=== PATIENT | female | born 1950 | race Caucasian/White ===

== ENCOUNTER 2017-09-03 15:47 | Emergency (ER) | payer MEDICARE ==
[2017-09-03 16:04] VITALS: BP 140/77
--- NOTE | 2017-09-03 17:03 | UC ---
Abdominal Pain Female HPI - HPI Summary HPI Summary: Patient presents with acute onset of "burning" abdominal pain and vomiting that started last night. Pain woke her from sleep around midnight. Several hours later she woke again and vomited about 4 times. Later that morning she vomited several more times. No blood. No diarrhea. No fever. Called her PCP and was advised to come here for further evaluation. Patient reports she feels overall a bit achy but otherwise has improved over the day. She is drinking water and guy kelvin and this has been staying down. She denies any recent travel or new foods but did have take-out [employer] last night for dinner. - History of Current Complaint Chief Complaint: UCGI Stated Complaint: NAUSEA, UPSET STOMACH Time Seen by Provider: 09/03/17 16:38 Hx Obtained From: Patient Onset/Duration: Sudden Onset, Lasting Hours, Still Present - But better Pain Intensity: 3 Pain Scale Used: 0-10 Numeric Location: Diffuse Radiates: No Character: Burning Aggravating Factor(s): Nothing Alleviating Factor(s): Nothing Associated Signs and Symptoms: Positive: Decreased Appetite, Nausea, Vomiting. Negative: Fever, Back Pain, Constipation, Blood in Stool, Urinary Symptoms, Diarrhea Allergies/Adverse Reactions: Allergies Allergy/AdvReac Type Severity Reaction Status Date / Time codeine Allergy Vomiting Verified 09/03/17 16:05 bandaids Allergy Rash Uncoded 09/03/17 16:05 PMH/Surg Hx/FS Hx/Imm Hx - Additional Past Medical History Additional PMH: HIATAL HERNIA, ENVIRONMENTAL ALLERGIES Cardiovascular History: Hypertension - Surgical History Surgical History: Yes Surgery Procedure, Year, and Place: 2 c-sections - Family History Known Family History: Positive: Unknown - PT ADOPTED - Social History Alcohol Use: Occasionally Substance Use Type: None Smoking Status (MU): Never Smoked Tobacco Review of Systems Constitutional: Negative Respiratory: Negative Cardiovascular: Negative Gastrointestinal: Abdominal Pain, Vomiting, Nausea Musculoskeletal: Myalgia Neurological: Headache All Other Systems Reviewed And Are Negative: Yes Physical Exam Triage Information Reviewed: Yes Appearance: Well-Appearing, No Pain Distress, Well-Nourished Vital Signs: Initial Vital Signs Temp 99.3 F 09/03/17 15:58 Pulse 93 09/03/17 15:58 Resp 18 09/03/17 15:58 BP 140/77 09/03/17 15:58 Pulse Ox 99 09/03/17 15:58 Vital Signs Reviewed: Yes Eyes: Positive: Conjunctiva Clear ENT: Positive: Hearing grossly normal Neck: Positive: Supple Respiratory Exam: Normal Cardiovascular Exam: Normal Abdomen Description: Positive: Soft, Other: - mildly tender mid abdomen. No rebound or rigidity. Negative: CVA Tenderness (R), CVA Tenderness (L), Distended, Guarding Bowel Sounds: Positive: Present Musculoskeletal: Positive: No Edema Neurological: Positive: Alert Psychological: Positive: Age Appropriate Behavior Skin: Negative: rashes Abd Pain Female Course/Dx - Differential Dx/Diagnosis Provider Diagnoses: acute nausea and vomiting Discharge - Sign-Out/Discharge Documenting (check all that apply): Discharge - Discharge Plan Condition: Stable Disposition: HOME Patient Education Materials: Acute Nausea and Vomiting (ED) Referrals: Tim Juan MD [Primary Care Provider] - If Needed Additional Instructions: GASTROENTERITIS: You may have gastroenteritis ("intestinal flu"). This disease is usually caused by a virus. There is no specific treatment. The disease will end by itself. For now, the main danger is dehydration. Give clear liquids. Examples include Pedialyte, Gatorade, clear broth, juices, flat sodas, and jello water. Medications may be prescribed by the physician for special cases. Once tolerated, the clear liquid diet may be supplemented with rice, cereal, toast, applesauce, or bananas. Call the physician or go to the hospital if vomiting increases or blood appears in the bowel movement or vomitus; if you fail to improve, or if signs of dehydration occur (tongue and mouth become dry, lethargy). ENSURE ADEQUATE HYDRATION. CLEAR LIQUIDS, BLAND DIET. AVOID CAFFEINE, DAIRY, GREASY, SPICY FOODS. ONCE YOU ARE TOLERATING CLEAR LIQUIDS YOU CAN ADVANCE TO SIMPLE, BLAND FOODS. Your symptoms should continue to improve over the next few days. Follow-up with your PCP or here if you're not improving as expected. - Billing Disposition and Condition Condition: STABLE Disposition: HOME
== END 2017-09-03 17:14 | disposition home or self-care (01) ==
LOC: UCEAST 15:47
DX: R11.2 Nausea with vomiting, unspecified (principal); K44.9 Diaphragmatic hernia without obstruction or gangrene; M79.1 Myalgia; R10.84 Generalized abdominal pain; R51 Headache; I10 Essential (primary) hypertension; Z88.5 Allergy status to narcotic agent; Z91.048 Other nonmedicinal substance allergy status
CPT/HCPCS: 99211; G0463